=== PATIENT | female | born 1960 | race Caucasian/White ===

== ENCOUNTER → 2017-08-05 | Outpatient (CLI) | payer OTHER | LOC: FIMAGING 14:03 | PROVIDERS: ATTEND Family Medicine | DX: E78.2 Mixed hyperlipidemia (principal); E55.9 Vitamin D deficiency, unspecified; R79.89 Other specified abnormal findings of blood chemistry ==

== ENCOUNTER → 2017-11-28 | Outpatient (CLI) | payer OTHER | LOC: BMCIMAGING 09:43 | PROVIDERS: ATTEND Family Medicine | DX: S93.401A Sprain of unspecified ligament of right ankle, initial encounter (principal); M25.562 Pain in left knee ==

== ENCOUNTER → 2018-01-06 | Outpatient (CLI) | payer OTHER | LOC: FIMAGING 06:57 | PROVIDERS: ATTEND Family Medicine | DX: K80.20 Calculus of gallbladder without cholecystitis without obstruction (principal); K83.9 Disease of biliary tract, unspecified ==

== ENCOUNTER → 2018-05-06 | Outpatient (CLI) | payer OTHER | LOC: FIMAGING 11:54 | PROVIDERS: ATTEND Family Medicine | DX: Z12.31 Encounter for screening mammogram for malignant neoplasm of breast (principal) ==